=== PATIENT | female | born 1985 | race Caucasian/White ===

== ENCOUNTER 2018-09-18 14:07 | Emergency (ER) | payer BC ==
[2018-09-18 14:30] VITALS: BP 149/92
--- NOTE | 2018-09-18 14:45 | UC ---
Throat Pain/Nasal Brian HPI - HPI Summary HPI Summary: Pt presents with c/o nasal congestion, ST, sinus pressure and pain x 10 days. - History of Current Complaint Chief Complaint: UCGeneralIllness Stated Complaint: SINUSES,SORE THROAT Time Seen by Provider: 09/18/18 14:25 Hx Obtained From: Patient Hx Last Menstrual Period: unknown, oral bc ?: No Onset/Duration: Gradual Onset, Lasting Days - 10, Still Present Severity: Severe Pain Intensity: 9 Cough: Nonproductive Associated Signs & Symptoms: Positive: Sinus Discomfort, Nasal Discharge - Epiglottits Risk Factors Epiglottis Risk Factors: Negative - Allergies/Home Medications Allergies/Adverse Reactions: Allergies Allergy/AdvReac Type Severity Reaction Status Date / Time cefprozil [From Cefzil] Allergy Hives Verified 09/18/18 14:27 morphine Allergy Hives Verified 09/18/18 14:27 Penicillins Allergy Hives Verified 09/18/18 14:27 Sulfa (Sulfonamide Allergy Hives Verified 09/18/18 14:27 Antibiotics) Home Medications: Home Medications Budesonide/Formote 80/4.5(NF) [Symbicort 80/4.5 (NF)] 1 puff INH BID 09/18/18 [ History Confirmed 09/18/18] EPINEPHrine [Epipen] 0.3 mg IJ ONCE 09/18/18 [History Confirmed 09/18/18] Fluticasone NASAL SPRAY 50MCG* [Flonase NASAL SPRAY 50MCG*] 2 spray BOTH NARES DAILY 09/18/18 [History Confirmed 09/18/18] Levalbuterol 1.25MG/0.5ML NEB* [Xopenex 1.25 MG/0.5 ML NEB.MICHAEL*] 1.25 mg INH Q4H PRN 09/18/18 [History Confirmed 09/18/18] Levalbuterol HFA INHALER* [Xopenex Hfa Inhaler*] 2 puff INH QID PRN 09/18/18 [ History Confirmed 09/18/18] LevoCETirizine TAB (NF) [Xyzal TAB (NF)] 5 mg PO DAILY 09/18/18 [History Confirmed 09/18/18] Montelukast Sodium TAB* [Singulair 10 MG TAB*] 10 mg PO DAILY 09/18/18 [History Confirmed 09/18/18] Norethindr/Eth Estradiol(Nf) [Lo Loestrin Fe (NF)] 1 tab PO DAILY 09/18/18 [ History Confirmed 09/18/18] Nortriptyline CAP* [Nortriptylline CAP*] 10 mg PO BEDTIME 09/18/18 [History Confirmed 09/18/18] Omeprazole CAP* [Prilosec CAP* 20 MG] 20 mg PO BID 09/18/18 [History Confirmed 09/18/18] PMH/Surg Hx/FS Hx/Imm Hx Previously Healthy: Yes Respiratory History: Asthma - Surgical History Surgical History: Yes Surgery Procedure, Year, and Place: T&A - Family History Known Family History: Positive: Cardiac Disease - Social History Occupation: Employed Full-time Lives: With Family Alcohol Use: None Substance Use Type: None Smoking Status (MU): Never Smoked Tobacco Have You Smoked in the Last Year: No Review of Systems All Other Systems Reviewed And Are Negative: Yes Constitutional: Positive: Chills, Fatigue Skin: Positive: Negative Eyes: Positive: Negative ENT: Positive: Sore Throat, Ear Ache, Sinus Congestion, Sinus Pain/Tenderness Respiratory: Positive: Cough Cardiovascular: Positive: Negative Gastrointestinal: Positive: Negative Genitourinary: Positive: Negative Motor: Positive: Negative Neurovascular: Positive: Negative Musculoskeletal: Positive: Negative Neurological: Positive: Headache Psychological: Positive: Negative Is Patient Immunocompromised?: No Physical Exam Triage Information Reviewed: Yes Appearance: Ill-Appearing Vital Signs: Initial Vital Signs Temp 97.8 F 09/18/18 14:25 Pulse 101 09/18/18 14:25 Resp 18 09/18/18 14:25 BP 149/92 09/18/18 14:25 Pulse Ox 98 09/18/18 14:25 Vital Signs Reviewed: Yes Eye Exam: Normal ENT: Positive: Nasal congestion, Sinus tenderness Dental Exam: Normal Neck exam: Normal Respiratory Exam: Normal Cardiovascular Exam: Normal Musculoskeletal Exam: Normal Neurological Exam: Normal Psychological Exam: Normal Skin Exam: Normal Throat Pain/Nasal Course/Dx - Differential Dx/Diagnosis Differential Diagnosis/HQI/PQRI: Sinusitis, URI Provider Diagnosis: Sinusitis nasal Discharge - Sign-Out/Discharge Documenting (check all that apply): Patient Departure All imaging exams completed and their final reports reviewed: No Studies - Discharge Plan Condition: Stable Disposition: HOME Prescriptions: DOXYcycline CAP(*) [DOXYcycline 100MG CAP(*)] 100 mg PO Q12H #20 cap Fluconazole 150 MG TAB* [Diflucan 150 MG TAB*] 150 mg PO ONCE #2 tablet Patient Education Materials: Sinusitis (ED) Referrals: No Primary Care Phys,NOPCP [Primary Care Provider] - [facility] [Outside] - If Needed - Billing Disposition and Condition Condition: STABLE Disposition: Home - Attestation Statements Provider Attestation: I was available for consult. This patient was seen by the SAM. The patient was not presented to , seen by or examined by -Kenya Fong MD
== END 2018-09-18 14:46 | disposition home or self-care (01) ==
LOC: UCCORT 14:07
DX: J32.9 Chronic sinusitis, unspecified (principal); Z88.1 Allergy status to other antibiotic agents; Z88.5 Allergy status to narcotic agent; Z88.0 Allergy status to penicillin
CPT/HCPCS: 99212; G0463